=== PATIENT | male | born 1975 | race American Indian/Alaskan Native ===

== ENCOUNTER 2017-10-25 20:57 | Emergency (ER) | payer OTHER ==
[2017-10-26] MEDS ORDERED: MOTRIN PO ONE (00:52)
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
[2017-10-26 03:07] VITALS: BP 124/83
== END 2017-10-26 03:07 | disposition home or self-care (01) ==
LOC: ED 20:57
DX: S06.0X1A Concussion with loss of consciousness of 30 minutes or less, initial encounter (principal); M54.5 Low back pain; V49.49XA Driver injured in collision with other motor vehicles in traffic accident, initial encounter; Y93.89 Activity, other specified; Y92.89 Other specified places as the place of occurrence of the external cause; Y99.8 Other external cause status
CPT/HCPCS: 70450; 72040; 72100

== ENCOUNTER 2022-01-11 21:18 | Emergency (ER) | payer OTHER ==
[2022-01-12 01:26] VITALS: BP 120/87
--- NOTE | 2022-01-12 02:03 | Emergency Department Report ---
ED General Adult HPI - General Chief complaint: Eye Problems Stated complaint: EYE PROBLEMS Time Seen by Provider: 01/12/22 01:57 Source: patient Mode of arrival: Ambulatory Limitations: No Limitations - History of Present Illness Initial comments: 46-year-old male past medical history of type 2 diabetes presents emerged department complaining of decreased vision in his right for the last 2 to 3 months and waxing and waning severity. Due to this continued vision issues who followed up with the cleaning technician at the eye specialists [facility] where he was evaluated by Dr. Charlotte Hargrove on 01/10/2022 the evaluation did yield a central retinal artery occlusion. He follow-up with his primary care doctor today around 10 AM and she saw him very briefly and advised him to go home and she will review his paperwork and follow-up with him on 8:52 PM. His PCP found him advised to come to the emergency department for further evaluation and treatment options. Patient is unsure of why he is in the emergency department and states he will who would like to follow-up with his PCP to have get the testing done reports no headache, no blurred visions no chest pain no fever, chills, sweats. No palpitations states that he feels normal and would like to return to work states he works out every day. -: Gradual Location: eyes Radiation: non-radiation Consistency: constant Improves with: none Worsens with: none Associated Symptoms: denies other symptoms Treatments Prior to Arrival: none - Related Data Previous Rx's Medication Instructions Recorded Last Taken Type Cyclobenzaprine [Flexeril] 10 mg PO TID PRN #12 tablet 10/26/17 Unknown Rx Ibuprofen [Motrin] 800 mg PO Q8HR PRN #30 tablet 10/26/17 Unknown Rx Allergies Allergy/AdvReac Type Severity Reaction Status Date / Time No Known Allergies Allergy Unverified 10/25/17 22:51 ED Review of Systems ROS: Stated complaint: EYE PROBLEMS Other details as noted in HPI Comment: All other systems reviewed and negative ED Past Medical Hx - Past Medical History Previous Medical History?: Yes Hx Diabetes: Yes - Surgical History Past Surgical History?: Yes Additional Surgical History: Throat surgery - Social History Smoking Status: Never Smoker Substance Use Type: None - Medications Home Medications: Home Medications Medication Instructions Recorded Confirmed Last Taken Type Cyclobenzaprine [Flexeril] 10 mg PO TID PRN #12 tablet 10/26/17 Unknown Rx Ibuprofen [Motrin] 800 mg PO Q8HR PRN #30 tablet 10/26/17 Unknown Rx ED Physical Exam - General Limitations: No Limitations General appearance: alert, in no apparent distress - Head Head exam: Present: atraumatic, normocephalic - Eye Eye exam: Absent: scleral icterus, conjunctival injection, nystagmus, periorbital swelling, periorbital tenderness Pupils: Present: normal accommodation - ENT ENT exam: Present: normal exam, normal orophraynx, mucous membranes moist, TM's normal bilaterally - Neck Neck exam: Present: normal inspection, full ROM - Respiratory Respiratory exam: Present: normal lung sounds bilaterally. Absent: respiratory distress - Cardiovascular Cardiovascular Exam: Present: regular rate, normal rhythm. Absent: systolic murmur, diastolic murmur, rubs, gallop - GI/Abdominal GI/Abdominal exam: Present: soft, normal bowel sounds - Rectal Rectal exam: Present: deferred - Extremities Exam Extremities exam: Present: normal inspection - Back Exam Back exam: Present: normal inspection. Absent: CVA tenderness (R), CVA tenderness (L) - Neurological Exam Neurological exam: Present: alert, oriented X3, CN II-XII intact, normal gait, reflexes normal. Absent: motor sensory deficit - Expanded Neurological Exam Expanded Neurological exam: Absent: innattentive, memory loss-remote event, memory loss- recent event, expressive aphasia, total aphasia Patient oriented to: Present: person, place, time Speech: Present: fluid speech Cranial nerves: EOM's Intact: Normal, Gag Reflex: Normal, Tongue Deviation: Normal, Nystagmus: Normal Cerebellar function: Finger to Nose: Normal, Heel to Rajput: Normal, Romberg: Normal Upper motor neuron: Babinski Sign: Normal Sensory exam: Upper Extremity Light Touch: Normal, Lower Extremity Light Touch: Normal Motor strength exam: RUE: 5, LUE: 5, RLE: 5, LLE: 5 Best Eye Response ([place]): (4) open spontaneously Best Motor Response ([place]): (6) obeys commands Best Verbal Response ([place]): (5) oriented [place] Total: 15 - Psychiatric Psychiatric exam: Present: normal affect, normal mood - Skin Skin exam: Present: warm, dry, intact, normal color. Absent: rash ED Course Vital Signs 02/12/22 01:19 Temperature 98.4 F Pulse Rate 70 Respiratory 18 Rate Blood Pressure 120/87 O2 Sat by Pulse 98 Oximetry ED Medical Decision Making - Medical Decision Making 46-year-old male presents emerged department with a 2 to 3-month history of decreased vision to the right was followed up by his cleaning technician which yielded a central artery occlusion which they state likely onset around October 2021. The plan was to have an appointment with the PCP discussed the need for a stroke work-up including blood pressure check, lipids, TTE with bubble, carotid imaging, hypercoagulability evaluation. And it was unlikely to have any further improvement evaluated to follow-up with ophthalmology in 2 weeks. I discussed and reviewed this document with the patient in detail he states he would like to follow-up with his primary care provider to have these test completed as most of the test that requested by the director print or not test complete in the emergency department. Currently he is stable no complaints or concerns at this present time and states he will return should he feel his symptoms are worsening. Attempted to contact his primary care provider at [facility] but was unsuccessful in reaching him. Discussed the case further with my attending Dr. Morris whom is aware of the findings and plan Critical care attestation.: If time is entered above; I have spent that time in minutes in the direct care of this critically ill patient, excluding procedure time. ED Disposition Clinical Impression: Central retinal artery occlusion of right eye Disposition: 01 HOME / SELF CARE / HOMELESS Is pt being admited?: No Does the pt Need Aspirin: No Condition: Stable Instructions: Central Retinal Artery Occlusion, Adult Referrals: PRIMARY CARE, [Referring] - 3-5 Days (Follow-up with your doctor at [facility] to complete evaluation recommended by the cleaning technician. Emergency emergency department should you feel your condition is worsening as we discussed)
== END 2022-01-12 02:43 | disposition home or self-care (01) ==
LOC: ED 21:18
DX: H34.11 Central retinal artery occlusion, right eye (principal); E11.9 Type 2 diabetes mellitus without complications; Z79.899 Other long term (current) drug therapy
CPT/HCPCS: 99282